=== PATIENT | female | born 1965 | race Caucasian/White ===

== ENCOUNTER 2017-07-02 03:28 | Day surgery (SDC) | payer MEDICARE, MEDICAID ==
[2017-07-01 14:34] VITALS: BP 131/70
--- NOTE | 2017-07-01 15:05 | PCM.EKG ---
[facility] Test Date: 2017-07-01 Test Time: 14:49:46 Pat Name: REDD RUBIO Department: Patient ID: [id number] Room: Gender: F Mechanical Supervisor: AWLVKarly : [id number] Requested By: AMARILIS OSCAR Order Number: [id number] Reading MD: Kameron Murguia Measurements Intervals [place] Rate: 73 P: 29 TN: 136 QRS: -25 QRSD: 86 T: 7 QT: 408 QTc: 449 Interpretive Statements Normal sinus rhythm Poor R wave progression. please correlate clinically No previous ECG available for comparison Electronically Signed On 07-05-2017 17:04:35 ACO COORDINATOR by Kameron Murguia Please click the below link to view image of tracing.
[2017-07-01 15:13] LABS: BASOPHIL % 0.4 % (0.0-0.2); EOSINOPHIL # 0.1 10^3/uL (0.0-0.2); EOSINOPHIL % 1.1 % (0.0-5.0); HEMOGLOBIN 13.4 g/dL (12.0-15.0); LYMPHOCYTES # 1.3 10^3/uL (1.0-4.8); LYMPHOCYTES % 22.4 % (24.0-44.0); MEAN CELL HGB 28.8 pg (26-34); MEAN CELL HGB CONCENTRATION 33.1 g/dL (33-37); MEAN CORP VOLUME 87.1 fL (78-100); MEAN PLATELET VOLUME 12.5 fL (7.8-11.0); MONOCYTES # 0.8 10^3/uL (0.3-0.8); MONOCYTES % 14.7 % (5.0-12.0); NEUTROPHIL # 3.4 10^3/uL (1.8-7.7); RED CELL DISTRIBUTION WIDTH 12.9 % (11.5-14.5); WHITE BLOOD CELL 5.6 10^3/uL (4.5-11.0)
[2017-07-01 15:33] LABS: CALCIUM 8.8 mg/dL (8.4-10.5); CARBON DIOXIDE 28.4 mmol/L (20.0-32)
[2017-07-02] VITALS (15 sets, daily range): BP systolic 119–164; BP diastolic 62–88
[~2017-07-02] VITALS: Ht 160 cm; Wt 89.8 kg
[~2017-07-02 03:28] MED LIST: AMLO1TAB86 PO; ATOR10TA PO; ESCI5TAB7 PO; GABA600T2 PO; HYDR25TA9 PO; INSU100C5 SQ; INSU100I13 SQ; NEBI5TAB2 PO
[2017-07-02] MEDS ORDERED: LACTATED RINGERS 1,000 ML ONE (04:32)
[2017-07-02] MEDS ORDERED: NS 100ML 100 ML IV ONE (04:33)
[2017-07-02] MEDS ORDERED: ANCEF ONE (04:33)
[2017-07-02] MEDS ORDERED: CYCL10TA2 PO (06:15)
[2017-07-02] MEDS ORDERED: AMLO1TAB86 PO (06:15)
[2017-07-02] MEDS ORDERED: HYDR-922 PO (06:15)
[2017-07-02] MEDS ORDERED: TRANSDERM-SCOP TD ONE ×2 (06:30→06:31)
[2017-07-02] MEDS ORDERED: ZOFRAN IV ONE (06:30)
[2017-07-02] MEDS ORDERED: ZOFRAN ONE ×2 (06:31→06:34)
[2017-07-02] MEDS ORDERED: ZEMURON IV ONE (06:34)
[2017-07-02] MEDS ORDERED: TORADOL ONE (06:34)
[2017-07-02] MEDS ORDERED: DILAUDID ONE ×2 (06:34→09:38)
[2017-07-02] MEDS ORDERED: DECADRON ONE ×2 (06:34→06:54)
[2017-07-02] MEDS ORDERED: NEOSTIGMINE ONE (06:34)
[2017-07-02] MEDS ORDERED: SUBLIMAZE ONE (06:35)
[2017-07-02] MEDS ORDERED: VERSED ONE ×2 (06:35→07:56)
[2017-07-02] MEDS ORDERED: DIPRIVAN IV ONE (06:35)
[2017-07-02] MEDS ORDERED: LACTATED RINGERS 2,000 ML ONE (06:36)
[2017-07-02] MEDS ORDERED: PEPCID IV ONE (06:36)
[2017-07-02] MEDS ORDERED: LIDOCAINE 2% VIAL ONE (06:36)
[2017-07-02] MEDS: LACTATED RINGERS 1,000 ML IV SCH ×2 (06:42→09:45)
[2017-07-02] MEDS ORDERED: SODIUM CHLORIDE IR ONE (06:46)
[2017-07-02] MEDS ORDERED: NAROPIN 0.5% 5 MG/ML VIAL ONE (06:54)
[2017-07-02] MEDS ORDERED: SUBLIMAZE IV PRN (09:30)
[2017-07-02] MEDS ORDERED: PHENERGAN IV PRN (09:30)
--- NOTE | 2017-07-02 09:43 | OPH ---
DATE OF SURGERY: 07/02/2017 PREOPERATIVE DIAGNOSIS: Displaced lateral malleolus fracture of the left ankle with a deltoid ligament sprain. POSTOPERATIVE DIAGNOSIS: Displaced lateral malleolus fracture of left ankle with a deltoid ligament sprain. OPERATIVE PROCEDURE: Open reduction and internal fixation, left lateral malleolus fracture. SURGEON: Tray Mccallum MD ANESTHESIA: LMA. TOURNIQUET TIME: 37 minutes at 300 mmHg. DRAINS: None. BLOOD LOSS: 10 mL. DESCRIPTION OF INDICATIONS: The patient is a 52-year-old female, community ambulator fell approximately a week ago and suffered a left lateral malleolus fracture that is displaced. She also had a deltoid ligament sprain with widening of the mortise. The patient was initially seen in the office last week where she had quite a bit of swelling laterally. So she was placed in a padded splint and has been keeping the leg elevated. At this point, the patient has a positive pinch test. The patient was taken to the operating room today for open reduction and internal fixation of the lateral malleolar fracture. DESCRIPTION OF PROCEDURE: The patient was placed on the operating table in the supine position. LMA anesthetic was induced without difficulty. Left thigh was padded and a tourniquet was applied. The left lower extremity was sterilely prepped and draped. The leg was exsanguinated with an Esmarch and then the tourniquet was inflated to 300 mmHg with good bounce. The patient had the incision made about the lateral malleolus longitudinally. Incision was taken through the skin and the subcutaneous tissues. The fracture was identified and reduced with bone clamps. The patient then had the fracture stabilized with a 6-hole 1/3 tubular plate. We placed three 3.5 cortical screws proximally and two 4.0 cancellous screws distally. Final AP and lateral views showed that there was good reduction of the fracture with good reduction of the mortise. The fracture alignment was satisfactory. The patient then had the wounds irrigated. The subcutaneous was closed with a barbed 2-0 Monocryl in a running manner. The skin was closed with a 3-0 Ethilon in an interrupted manner. A compressive dressing and a U splint was applied. The patient was extubated in the operating room and sent to recovery in stable condition. Tray Mccallum MD DR: DENNISE/nevaeh JOB# [id number]
[2017-07-02] MEDS: DILAUDID IV PRN ×3 (09:44→09:58)
[2017-07-02] MEDS ORDERED: NORCO 5MG PO ONE ×2 (10:25)
[2017-07-02] MEDS ORDERED: ACET-687 PO (10:45)
--- NOTE | 2017-07-02 13:20 | DIREP ---
PROCEDURE:XRAY ANKLE MIN 3VWS-LT COMPARISON:, CR, ANKLE 3 VIEW LEFT, 06/26/2017, 02:56 PM. INDICATIONS:S/P ORIF LEFT ANKLE FINDINGS: BONES:Plate and screw fixation of the distal fibular fracture. JOINTS:Normal. SOFT TISSUES:Normal. OTHER:Overlying cast or splint obscures bony detail. CONCLUSION:Anatomic alignment and position status post plate and screw fixation of distal left fibular fracture. Dictated by: Hayden Boyer M.D. on 07/02/2017 at 01:18 PM
== END 2017-07-02 11:45 | disposition home or self-care (01) | DRG 563 ==
LOC: SDC 03:28
PROVIDERS: ATTEND Orthopaedic Surgery
DX: S82.62XA Displaced fracture of lateral malleolus of left fibula, initial encounter for closed fracture (principal); S93.422A Sprain of deltoid ligament of left ankle, initial encounter; E78.5 Hyperlipidemia, unspecified; M19.90 Unspecified osteoarthritis, unspecified site; E11.9 Type 2 diabetes mellitus without complications; I10 Essential (primary) hypertension; W19.XXXA Unspecified fall, initial encounter; Y93.89 Activity, other specified; Y92.89 Other specified places as the place of occurrence of the external cause; Y99.8 Other external cause status; Z79.899 Other long term (current) drug therapy; Z85.038 Personal history of other malignant neoplasm of large intestine; Z90.710 Acquired absence of both cervix and uterus; Z98.890 Other specified postprocedural states; Z83.3 Family history of diabetes mellitus; Z80.9 Family history of malignant neoplasm, unspecified; Z82.62 Family history of osteoporosis; Z93.2 Ileostomy status
CPT/HCPCS: 27792; 36415; 64447; 73610; 76000; 80053; 85025; 93005; J0690; J1100 ×2; J1170 ×2; J1885; J2001; J2250 ×2; J2405 ×2; J2795; J3010; J3490 ×3; J7030; J7050; J7120 ×2; C1713; C1716; J2710

== ENCOUNTER → 2017-09-21 | Outpatient (CLI) | payer MEDICARE, MEDICAID ==
[~2017-09-21] MED LIST changes: +ACET-687 PO; +CYCL10TA2 PO; +HYDR-922 PO
--- NOTE | 2017-09-21 18:01 | DIREP ---
PROCEDURE:US PELVIC FOLLOWED BY TRANSVAGINAL COMPARISON:None. INDICATIONS:POST MENOPAUSAL BLEEDING TECHNIQUE:Pelvic ultrasound using transabdominal technique. Endovaginal images were also obtained for better assessment of the uterus and adnexa. FINDINGS: UTERUS:Size is 7 x 2.6 x 4.7 cm. The myometrium is homogeneous. There is a 1.3 x 0.6 x 1.3 cm intramural mass most likely representing a leiomyoma. ENDOMETRIUM:Thickness is 2 mm. RIGHT OVARY:Not visualized. No right adnexal mass. LEFT OVARY:Not visualized. No left adnexal mass. CUL-DE-SAC:Normal. OTHER:Negative. CONCLUSION: 1. Small (<2 cm) intramural leiomyoma. 2. Ovaries not visualized. No adnexal mass. Dictated by: Candi Lemons MD on 09/21/2017 at 05:58 PM
== END | disposition home or self-care (01) ==
LOC: RAD 13:31
PROVIDERS: ATTEND Hospitalist
DX: N95.0 Postmenopausal bleeding (principal); D21.9 Benign neoplasm of connective and other soft tissue, unspecified
CPT/HCPCS: 76830; 76856

== ENCOUNTER → 2018-09-05 | Outpatient (CLI) | payer MEDICARE, MEDICAID ==
[~2018-09-05] MED LIST changes: -GABA600T2 PO; +GABA600T7 PO; +HYDR-3470 PO; -HYDR-922 PO
--- NOTE | 2018-09-05 17:09 | DIREP ---
PROCEDURE:CT CHEST WITH CONTRAST COMPARISON:JUSTINA Wheeler, CHEST 2 VIEW, 05/09/2018, 05:16 PM. JUSTINA Wheeler, CHEST 2 VIEW, 07/16/2018, 05:16 AM. JUSTINA Wheeler, CHEST 2 VIEW, 08/24/2018, 03:09 PM. INDICATIONS:COPD, PLEURAL EFFUSION TECHNIQUE:Helical sections through the chest were performed from the lung apices through the diaphragms with IV contrast. Sagittal and coronal reconstructions are obtained from source images. FINDINGS: LUNGS:Mild regions of atelectasis, predominantly at the right lung base PLEURA:Small effusions, slightly greater on the right. Pneumothorax is not identified CARDIAC:Status post valve replacement. Minimal pericardial effusion. MEDIASTINUM:Normal. No mass or adenopathy. MILAGRO:Normal. No mass or adenopathy. AORTA:Normal. No aneurysm. CHEST WALL:Normal. No mass or axillary adenopathy. LIMITED ABDOMEN:Normal. Limited images of the upper abdomen are unremarkable. BONES:Sternotomy. No bony lesion or fracture. OTHER:Negative. CONCLUSION:Small effusions, right greater than left. Minimal basilar atelectasis, predominantly right-sided. Dictated by: Pipe Mejia MD on 09/05/2018 at 05:04 PM
== END | disposition home or self-care (01) ==
LOC: CT 15:26
PROVIDERS: ATTEND Internal Medicine
DX: J90 Pleural effusion, not elsewhere classified (principal); J44.9 Chronic obstructive pulmonary disease, unspecified
CPT/HCPCS: 71260; Q9965

== ENCOUNTER 2018-11-09 07:06 | Emergency (ER) | payer MEDICARE, MEDICAID ==
[~2018-11-09] VITALS: Ht 160 cm; Wt 101.6 kg
--- NOTE | 2018-11-09 07:06 | NUR ---
ARRIVAL PT CAME TO ED VIA EMS WITH C/O PAIN TO R KNEE AFTER STUMBLING IN STORE. PT STATES SHE FEELS LIKE SHE HYPEREXTENED HER KNEE.
[2018-11-09 07:18] VITALS: BP 187/99
--- NOTE | 2018-11-09 07:33 | ER.PDOC ---
General Chief Complaint: Extremities Stated Complaint: KNEE PAIN Time seen by MD: 07:23 Source: patient Exam Limitations: no limitations History of Present Illness Initial Comments Pt in convenience store, tripped and stumbled forward. States that her "body went forward and my knee went backwards." (hyperextension type injury) Pt could not get up and walk. Was on her way to appt in [place] due to chronic swelling in legs. Onset: just prior to arrival Where: other Context: fall Severity: moderate Associated Symptoms: unable to bear weight Allergies: Coded Allergies: No Known Allergies (Unverified , 07/01/17) Home Meds Reported Medications Acetaminophen With Codeine (TYLENOL WITH CODEINE #4 TABLET) 1 Each Tablet, 1-2 TAB PO Q4 PRN for PAIN, #20 TAB 2 Refills 07/02/17 Hydrocodone Bit/Acetaminophen (NORCO 10-325 TABLET) 10-325 T1 Ea Tab, 1-2 TAB PO Q6 PRN for PAIN, #60 TAB 07/02/17 Cyclobenzaprine Hcl (FLEXERIL) 10 Mg Tablet, 1 TAB PO TID, #90 TAB 07/02/17 Amlodipine Bes/Olmesartan Med (ROSAS 5-40 MG TABLET) 1 Each Tablet, 1 TAB PO HS PRN for 10/40MG, #30 TAB 5 Refills 07/02/17 Hydrochlorothiazide (HYDROCHLOROTHIAZIDE) 25 Mg Tablet, 1 TAB PO DAILY, #30 TAB 5 Refills 07/01/17 Escitalopram Oxalate (LEXAPRO) 5 Mg Tablet, 1 TAB PO DAILY, #30 TAB 2 Refills 07/01/17 Gabapentin (GABAPENTIN) 600 Mg Tablet, 1 TAB PO TID, #90 TAB 3 Refills 07/01/17 Insulin Aspart (NOVOLOG) 100 Unit/1 Ml Cartridge, SQ TIDAC, CARTRIDGE SLIDING SCALE WITH MEALS 07/01/17 Insulin Glargine,Hum.rec.anlog (LANTUS SOLOSTAR) 100 Unit/1 Ml Insuln.pen, 37 UNITS SQ BID, #15 MILLILITER 3 Refills 07/01/17 Nebivolol Hcl (BYSTOLIC) 5 Mg Tablet, 1 TAB PO HS, #90 TAB 1 Refill 07/01/17 Atorvastatin 10MG (LIPITOR 10MG) 10 Mg Tablet, 1 TAB PO HS, #90 TAB 1 Refill 07/01/17 Past Medical History Medical History: cancer, coronary artery disease, cardiac problems, congestive heart failure, diabetes, GERD, high cholesterol, heart valve disease, hypertension, renal disease, thyroid disease Surgical History: cardiac cath, back, colon, coronary bypass surgery, tubal LMP (females 10-50): tubal Family History Significant Family History: no pertinent family hx Social History Smoking: non-smoker Alcohol Use: none Drug Use: none Review of Systems Constitutional: no symptoms reported EENTM: no symptoms reported Respiratory: no symptoms reported Cardiovascular: see HPI Gastrointestinal: no symptoms reported Musculoskeletal: see HPI Skin: other (chronic edema in legs) All Other Systems: Reviewed and Negative Physical Exam General Appearance: Alert Foot: nml inspection Ankle: nml inspection Knee: tenderness (just inferior to patella, extensor mechanism intact, mild tenderness to posterior knee) Thigh/Hip: nml inspection Gait: unable to test gait Neuro/Vasc/Tendon: sensation nml, motor nml, no vascular compromise, tendon function nml Skin: warm/dry Head/ENT: nml inspection Neck/Back: nml inspection Comments 3-4+ edema b/l LE, non-tender. Results/Orders Results/Orders Orders - DANIE MAJOR DO Xr Knee Rt 2v (11/09/18 07:27) Vital Signs Date Time Temp Pulse Resp B/P (MAP) Pulse Ox O2 Delivery O2 Flow Rate FiO2 11/09/18 07:18 98.1 79 14 187/99 (128) 97 Nasal Canula 2.00 98.1 11/09/18 07:13 98.1 79 14 97 Nasal Canula 98.1 11/09/18 07:13 98.1 79 14 98.1 Progress Progress Spoke with luis Ludwig to discharge, can f/u in office on Wednesday around 1pm. NWB with knee immobilizer. Will Rx pain meds. Knee x-ray shows: 1. Minimally displaced fracture involving the medial tibial plateau as discussed above. 2. Subtle degenerative changes of the knee with minimal scattered osteophyte formation and relatively preserved joint spaces. 3. Large suprapatellar joint effusion. EKG/XRAY/CT/US XRAY: knee XRAY Comments: tib plateau fx Departure Time of Disposition: 08:14 Disposition: 01 HOME, SELF-CARE Impression: Primary Impression: Tibial plateau fracture, right Condition: Stable Referrals: TEGAN DEVLIN (PCP) PRIMARY CARE PROVIDER Additional Instructions: Follow up with Dr. Mccallum, call office, should be able to be seen Wednesday around 1pm. Duration or Time Spent with Pa: 30 Problem Qualifiers Primary Impression: Tibial plateau fracture, right Encounter type: initial encounter Fracture type: closed Qualified Codes: S82.141A - Displaced bicondylar fracture of right tibia, initial encounter for closed fracture DANIE MAJOR DO Nov 09, 2018 07:33
--- NOTE | 2018-11-09 07:55 | DIREP ---
PROCEDURE:XRAY KNEE 2 VWS-RT COMPARISON:None. INDICATIONS:fall, knee pain FINDINGS: BONES:Minimally displaced fracture involving the medial tibial plateau with the fracture line extending from the tibial spines to the medial aspect of the proximal tibial metaphysis. JOINTS:Joint spaces are relatively maintained with minimal scattered osteophyte formation. SOFT TISSUES:Large suprapatellar joint effusion. OTHER:Superior patellar enthesopathy. CONCLUSION: 1. Minimally displaced fracture involving the medial tibial plateau as discussed above. 2. Subtle degenerative changes of the knee with minimal scattered osteophyte formation and relatively preserved joint spaces. 3. Large suprapatellar joint effusion. Dictated by: Sandro Pickard M.D. On 11/09/2018 at 07:47 AM
--- NOTE | 2018-11-09 08:08 | NUR ---
ORTHO DR MAJOR ON PHONE WITH DR OSCAR.
--- NOTE | 2018-11-09 08:27 | NUR ---
PT PAMI PHONED RYAN SULLIVAN FROM PT TO FIT PT FOR BRACE D/T 3+EDEMA TO LE.
--- NOTE | 2018-11-09 08:40 | NUR ---
PT RYAN SULLIVAN, PT AT BEDSIDE FITTING PT WITH BRACE.
[2018-11-09 09:40] VITALS: BP 187/99
[2018-11-09] MEDS ORDERED: MORPHINE SULFATE IV ONE (10:00)
--- NOTE | 2018-11-09 10:41 | NUR ---
Dial Lock brace fitted and donned. Brace lock out in full extension. Patient and family member instructed to loosen the brace at least daily to assess the skin integrity. Both verbalized understanding. Signed: 11/09/18 at 1044 by Crystal Souza PT PT
== END 2018-11-09 09:30 | disposition home or self-care (01) ==
LOC: EDBD 07:06 → ER 07:06
DX: S82.141A Displaced bicondylar fracture of right tibia, initial encounter for closed fracture (principal); I11.0 Hypertensive heart disease with heart failure; I25.10 Atherosclerotic heart disease of native coronary artery without angina pectoris; E78.00 Pure hypercholesterolemia, unspecified; E11.9 Type 2 diabetes mellitus without complications; E07.9 Disorder of thyroid, unspecified; I50.9 Heart failure, unspecified; K21.9 Gastro-esophageal reflux disease without esophagitis; Z79.4 Long term (current) use of insulin; Z79.899 Other long term (current) drug therapy; Z95.1 Presence of aortocoronary bypass graft; W18.40XA Slipping, tripping and stumbling without falling, unspecified, initial encounter; Y93.89 Activity, other specified; Y92.89 Other specified places as the place of occurrence of the external cause; Y99.8 Other external cause status
CPT/HCPCS: 29505; 29530; 73560; 96374; 99284; J2270; 97760-GP

== ENCOUNTER → 2019-01-13 | Outpatient (CLI) | payer MEDICARE, MEDICAID ==
--- NOTE | 2019-01-13 11:23 | DIREP ---
PROCEDURE:MRI JOINT LOWER EXTREMITY-RT W/O COMPARISON:[facility], , XRAY KNEE 1-2 VWS-RT, 11/09/2018, 07:16 AM. INDICATIONS:M25.561 RIGHT KNEE PAIN TECHNIQUE:A complete multi-planar MRI was performed. FINDINGS: PATELLOFEMORAL:Mild thinning of the cartilage of the superior patella. MEDIAL COMPARTMENT MEDIAL MENISCUS:Normal. No visible tear or significant degeneration. HYALINE CARTILAGE:Normal. No visible defect. BONES:There is a comminuted fracture involving the medial tibial metaphysis with obliquely oriented fracture plane to the medial margin of the medial tibial plateau and medial tibial spine. There is some callus formation without mature osseous bridging. Fracture is slightly subluxed medially approximately 5 mm. The fracture extends into the anterior margin of the lateral tibial plateau. There is patchy marrow edema throughout the proximal tibia. MCL AND MEDIAL CAPSULE:Normal medial collateral ligament and medial capsule. LATERAL COMPARTMENT LATERAL MENISCUS:Normal. No visible tear or significant degeneration. HYALINE CARTILAGE:Normal. No visible defect. BONES:As mentioned above the medial tibial plateau/metaphysis fracture extends into the anterior portion of the lateral tibial plateau with patchy marrow edema. LCL/POSTEROLAT. COMPLEX:Normal lateral collateral ligament, fascicles, lateral capsule and ligaments. ACL:Normal appearing ligament. PCL:Normal appearing ligament. MENISCOFEMORAL:Normal meniscofemoral ligaments. EFFUSION:Large joint effusion. OTHER:Extensive soft tissue edema around the knee. Popliteus muscle strain or contusion. CONCLUSION: 1. In the axial plane (series 1001 image 8) there is a Y-shaped fracture involving the proximal tibial metaphysis, primarily involves the medial tibial plateau with 5 mm of lateral subluxation of the fragment with an arm of the fracture extending into the anterior portion of the lateral tibial plateau without displacement. Dictated by: Myles Coreas M.D. on 01/13/2019 at 11:16 AM
== END | disposition home or self-care (01) ==
LOC: RAD 08:13
PROVIDERS: ATTEND Orthopaedic Surgery
DX: S83.141A Lateral subluxation of proximal end of tibia, right knee, initial encounter (principal); X58.XXXA Exposure to other specified factors, initial encounter; Y93.89 Activity, other specified; Y92.89 Other specified places as the place of occurrence of the external cause; Y99.8 Other external cause status
CPT/HCPCS: 73721